=== PATIENT | female | born 1995 | race Caucasian/White ===

== ENCOUNTER → 2018-03-22 01:41 | Observation (INO) ==
[2018-03-22 00:52] VITALS: BP 119/71
[2018-03-22 01:12] LABS: Bilirubin,Urine Negative (Negative); Blood,Urine Negative (Negative); Clarity,Urine Clear (Clear); Color,Urine Yellow (Yellow); Glucose,Urine (UA) Normal (Normal); Ketones,Urine Trace mg/dL (Negative); Leukocyte Esterase,Urine Small (Negative); Nitrite,Urine Negative (Negative); PH,Urine 6.5 pH Units (5.0-8.0); Protein,Urine Negative (Neg-Trace); Specific Gravity,Urine 1.019 (1.010-1.025); Urobilinogen,Urine Normal (Normal)
[2018-03-22 01:14] LABS: Bacteria,Urine Few per hpf (None-Few); Hyaline Casts,Urine None Seen per lpf (None-Few); Squamous Epithelial Cell,Urine Many per lpf (None-Few)
[2018-03-22 01:24] LABS: Amphetamine Screen,Urine Negative ng/mL (Cutoff=1000); Barbiturate Screen,Urine Negative ng/mL (Cutoff=200); Benzodiazepines Screen,Urine Negative ng/mL (Cutoff=200); Cannabinoid Screen,Urine Negative ng/mL (Cutoff = 50); Cocaine Screen,Urine Negative ng/mL (Cutoff= 300); Opiate Screen,Urine Negative ng/mL (Cutoff=300); Phencyclidine Screen,Urine Negative ng/mL (Cutoff=25)
[2018-03-22 01:27] LABS: Sperm,Urine Present
--- NOTE | 2018-03-22 04:41 | Discharge Summary ---
Date of Encounter: 03/22/18 Time of Encounter: 01:35 - Discharge Diagnosis (1) 20 weeks gestation of Priority: Primary Status: Acute Comments: admitted for observation (2) Round ligament pain Priority: Secondary Status: Acute Comments: pain interventions discussed with patient - Discharge Medications Home Medications: RX: Vit Calc,Iron,Folic [ Vitamins] 1 tab PO DAILY 07/22/16 [ History] Promethazine [Phenergan] 25 mg PO Q6HR PRN 03/22/18 [History] Allergies/Adverse Reactions: 3 Allergy/AdvReac Type Severity Reaction Status Date / Time No Known Allergies Allergy Verified 03/22/18 00:46 Data Procedures and tests throughout hospitalization: Laboratory Tests 03/22/18 03/22/18 00:52 00:52 Urine Color Yellow Urine Clarity Clear Urine pH 6.5 Ur Specific [place] 1.019 Urine Protein Negative Urine Glucose (UA) Normal Urine Ketones Trace H Urine Blood Negative Urine Nitrite Negative Urine Bilirubin Negative Urine Urobilinogen Normal Ur Leukocyte Esterase Small H Urine Microscopic RBC 3-5 H Urine Microscopic WBC 5-15 H Ur Squamous Epith Cells Many H Urine Bacteria Few Hyaline Casts None Seen Urine Sperm Present Ur Culture Indicated? NO. A Urine Opiates Screen Negative Ur Barbiturates Screen Negative Ur Phencyclidine Scrn Negative Ur Amphetamines Screen Negative U Benzodiazepines Scrn Negative Urine Cocaine Screen Negative U Marijuana (THC) Screen Negative Labs on day of discharge: Labs from last 24 hours 03/22/18 03/22/18 00:52 00:52 Urine Color Yellow Urine Clarity Clear Urine pH 6.5 Ur Specific [place] 1.019 Urine Protein Negative Urine Glucose (UA) Normal Urine Ketones Trace H Urine Blood Negative Urine Nitrite Negative Urine Bilirubin Negative Urine Urobilinogen Normal Ur Leukocyte Esterase Small H Urine Microscopic RBC 3-5 H Urine Microscopic WBC 5-15 H Ur Squamous Epith Cells Many H Urine Bacteria Few Hyaline Casts None Seen Urine Sperm Present Ur Culture Indicated? NO. A Urine Opiates Screen Negative Ur Barbiturates Screen Negative Ur Phencyclidine Scrn Negative Ur Amphetamines Screen Negative U Benzodiazepines Scrn Negative Urine Cocaine Screen Negative U Marijuana (THC) Screen Negative Date of admission: 03/22/18 00:31 Discharging clinician: Ludy huertas) Anticipated date of discharge: 03/22/18 - Patient Status Disposition: Home, Self-Care Condition: Good Functional capacity at discharge: independent ambulation - Discharge Instructions Follow Up With: Augustine Zavaleta MD [Partnered Physician] - Additional Instructions: LABOR AND DELIVERY DISCHARGE INSTRUCTIONS Signs and Symptoms to be Reported to your Doctor Immediately: * Sudden gush, continuous or intermittent lead of fluid from vagina (note the time of gush and color of fluid) * Onset of bright red vaginal bleeding with or without pain (if you had a vaginal exam during this visit you may notice some dark red spotting. This is normal.) * Lower abdominal cramping or backache that is premenstrual-like feeling. * More than 6 contractions in one hour. * Burning during urination, having to urinate more frequently or pain in your mid-back. * A change in the baby's activity. This could be an increase or decrease in activity. * Severe headache which does not go away with tylenol. * Sudden swelling in the face, hands, arms and/or legs. * Upper abdominal pain - sometimes associated with heartburn or nausea and is not relieved by Maalox, Mylanta or Tums. * Dizziness or blurred vision or visual disturbances (seeing stars/lights). * Kick Counts One hour after a meal, lay down on one side in a quiet place. Count the number of faheem the baby moves during an hour. If less than 6 movements, notify your physician. Diet: *Force fluids - 8-10 tall glasses of fluid per day. May include popsicles and jello. *Limit caffeine - this includes chocolate, coffee, tea, any soft drink containing such as all geovany, [place] Yellow and Mountain Dew follow up all schedule appointments - Diet and Activity Activity: increase activity as tolerated Diet: regular diet Hospital Course DIAGNOSTIC TECH Hospital course: Patient is a 22 y/o presented to labor and delivery with complaints of lower abdominal pains that come and go. Patient denies LOF, VB or contractions. Patient reports +FM. Patient has not tried any interventions for abdominal pain. The importance of po hydration was also discussed with patient. Patient scheduled for follow up with Dr. Zavaleta this week. Time Attestation: Total time spent providing and/or coordinating discharge services: Time Spent: Less than 30 minutes Exam - Constitutional Vitals: Pulse Resp BP 93 16 119/71 03/22/18 00:45 03/22/18 00:45 03/22/18 00:45 - Other Additional findings: Patient seen and assessed by RN. FHR 150 bpm per doppler. - VTE Reasons for not Prescribing Prophylaxis: Treatment not Indicated - Low risk for VTE
== END | disposition home or self-care (01) ==
LOC: 1NENULAB
PROVIDERS: ADMIT Advanced Practice Midwife; ATTEND Advanced Practice Midwife

== ENCOUNTER → 2018-04-21 23:35 | Observation (INO) ==
[2018-04-21 22:55] LABS: Bilirubin,Urine Negative (Negative); Blood,Urine Negative (Negative); Clarity,Urine Cloudy (Clear); Color,Urine Yellow (Yellow); Glucose,Urine (UA) Normal (Normal); Ketones,Urine Trace mg/dL (Negative); Leukocyte Esterase,Urine Small (Negative); Nitrite,Urine Negative (Negative); Protein,Urine 30 mg/dL (Neg-Trace); Specific Gravity,Urine > 1.030 (1.010-1.025); Urobilinogen,Urine Normal (Normal)
[2018-04-21 22:56] LABS: Bacteria,Urine Many per hpf (None-Few); Hyaline Casts,Urine Moderate per lpf (None-Few); Squamous Epithelial Cell,Urine Many per lpf (None-Few); WBC,Urine 50-100 per hpf (0-3)
[2018-04-21 23:16] LABS: Amphetamine Screen,Urine Negative ng/mL (Cutoff=1000); Barbiturate Screen,Urine Negative ng/mL (Cutoff=200); Benzodiazepines Screen,Urine Negative ng/mL (Cutoff=200); Cannabinoid Screen,Urine Negative ng/mL (Cutoff = 50); Cocaine Screen,Urine Negative ng/mL (Cutoff= 300); Opiate Screen,Urine Negative ng/mL (Cutoff=300); Phencyclidine Screen,Urine Negative ng/mL (Cutoff=25)
--- NOTE | 2018-04-21 23:33 | OB/GYN Progress Note ---
Date of Encounter: 04/21/18 Time of Encounter: 23:31 - Assessment and Plan (1) 24 weeks gestation of Current Visit: Yes Status: Acute (2) Abdominal cramping affecting Current Visit: Yes Status: Acute UA indicates dehydration. Pt states feels better after drinking 1L jug of water , no more abdominal pain. Good movement. Discharged home with labor and when to return to triage precautions. Pt verbalizes understanding. Subjective - Subjective Interval history: 24+3 weeks [facility] of sharp pains to upper and lower abdomen. Reports good movement, denies contractions, vaginal bleeding or leaking of fluid. Pt was outside for most of the day today and only drank 1 bottle of water and a bottle of gatorade all day. Antepartum ROS: movement normal, no loss of fluid, no vaginal bleeding, no contractions Objective - Vital Signs Vital Signs: Intake and Output 04/21/18 04/21/18 04/21/18 07:59 15:59 23:59 Other: Weight 92.079 kg Patient Weight 04/21/18 23:59 Weight 92.079 kg - Exam FHR: auscultation normal FHR comments: Baseline 145 Abdomen: Present: soft, gravid Comments: No CVA tenderness. - Labs Labs: Abnormal lab results Urine Clarity Cloudy (Clear) A 04/21/18 22:45 Ur Specific [place] > 1.030 (1.010-1.025) H 04/21/18 22:45 Urine Protein 30 mg/dL (Neg-Trace) H 04/21/18 22:45 Urine Ketones Trace mg/dL (Negative) H 04/21/18 22:45 Ur Leukocyte Esterase Small (Negative) H 04/21/18 22:45 Urine Microscopic RBC 5-15 per hpf (0-3) H 04/21/18 22:45 Urine Microscopic WBC 50-100 per hpf (0-3) H 04/21/18 22:45 Ur Squamous Epith Cells Many per lpf (None-Few) H 04/21/18 22:45 Urine Bacteria Many per hpf (None-Few) H 04/21/18 22:45 Hyaline Casts Moderate per lpf (None-Few) H 04/21/18 22:45 Ur Culture Indicated? NO. (NO) A 04/21/18 22:45
== END | disposition home or self-care (01) ==
LOC: 1NENULAB
PROVIDERS: ADMIT Advanced Practice Midwife; ATTEND Advanced Practice Midwife

== ENCOUNTER 2018-06-03 00:52 | Observation (INO) ==
[2018-06-03 01:32] LABS: Bilirubin,Urine Negative (Negative); Blood,Urine Negative (Negative); Clarity,Urine Cloudy (Clear); Color,Urine Yellow (Yellow); Glucose,Urine (UA) Normal (Normal); Ketones,Urine Negative (Negative); Leukocyte Esterase,Urine Negative (Negative); Nitrite,Urine Negative (Negative); Protein,Urine Negative (Neg-Trace); Specific Gravity,Urine 1.009 (1.010-1.025); Urobilinogen,Urine Normal (Normal)
[2018-06-03 01:35] LABS: Bacteria,Urine Few per hpf (None-Few); Hyaline Casts,Urine None Seen per lpf (None-Few); RBC,Urine 0-3 per hpf (0-3); Squamous Epithelial Cell,Urine Many per lpf (None-Few)
[2018-06-03 01:38] LABS: Amphetamine Screen,Urine Negative ng/mL (Cutoff=1000); Barbiturate Screen,Urine Negative ng/mL (Cutoff=200); Benzodiazepines Screen,Urine Negative ng/mL (Cutoff=200); Cannabinoid Screen,Urine Negative ng/mL (Cutoff = 50); Cocaine Screen,Urine Negative ng/mL (Cutoff= 300); Opiate Screen,Urine Negative ng/mL (Cutoff=300); Phencyclidine Screen,Urine Negative ng/mL (Cutoff=25)
--- NOTE | 2018-06-03 03:03 | OB/GYN Progress Note ---
Date of Encounter: 06/03/18 Time of Encounter: 03:01 - Assessment and Plan (1) Vaginal discharge during in third trimester Current Visit: Yes Status: Acute SSE with scant amount thin, white discharge in vault. No pooling, negative nitrazine, negative fern. Discharge appears physiologic. Discharge home with precautions. (2) 30 weeks gestation of Current Visit: Yes Status: Acute Subjective - Subjective Interval history: 22 year-old presenting at 30w4d with c/o leaking fluid x2 gushes. She reports first gush night before last around 10-11pm with a second gush last evening around the same time. She denies leaking or discharge in between. No urinary sx or other complaints. Good FM. Antepartum ROS: loss of fluid, movement normal, no vaginal bleeding, no contractions Objective - Vital Signs Vital Signs: Intake and Output 06/02/18 06/02/18 06/03/18 15:59 23:59 07:59 Other: Weight 94.256 kg Patient Weight 06/03/18 23:59 Weight 94.256 kg - Exam FHR: category 1 FHR comments: NST reassuring for GA, 140 BPM Auscultation: bilateral: normal Abdomen: Present: soft, gravid Uterus: Absent: tenderness Cervical dilation: visually closed, no SVE due to rare contractions on toco - Labs Labs: Abnormal lab results Urine Clarity Cloudy (Clear) A 06/03/18 01:16 Ur Specific [place] 1.009 (1.010-1.025) L 06/03/18 01:16 Urine Microscopic WBC 3-5 per hpf (0-3) H 06/03/18 01:16 Ur Squamous Epith Cells Many per lpf (None-Few) H 06/03/18 01:16
== END 2018-06-03 03:12 | disposition home or self-care (01) ==
LOC: 1NENULAB
PROVIDERS: ADMIT Registered Nurse; ATTEND Registered Nurse

== ENCOUNTER 2018-08-03 09:17 | Inpatient (IN) ==
[2018-08-03] MEDS ORDERED: Famotidine 20 MG/2 ML VIAL IVP PRN (09:28)
[2018-08-03] MEDS ORDERED: CeFAZolin Premix DUPLEX 2,000 MG/50 ML BAG IVPB ONE (09:28)
[2018-08-03] MEDS ORDERED: Naloxone 0.4 MG/ML INJ IVP PRN (09:28)
[2018-08-03] MEDS ORDERED: Ondansetron 4 MG/2 ML VIAL IVP PRN ×3 (09:28→14:48)
[2018-08-03] MEDS ORDERED: Metoclopramide 10 MG/2 ML VIAL IVP PRN ×2 (09:28→14:48)
[2018-08-03] MEDS ORDERED: Ringers Solution, Lactated 1,000 ML IVC ONE (09:28)
[2018-08-03] MEDS ORDERED: Ringers Solution, Lactated 1,000 ML IVC SCH ×2 (09:30→15:00)
--- NOTE | 2018-08-03 12:15 | OB/GYN History & Physical ---
Date of Encounter: 08/03/18 Time of Encounter: 12:14 Assessment and Plan (1) 39 weeks gestation of Current visit: Yes Status: Acute Presents for repeat . Ptaware of operative risks and signed appropriate consent. History of Present Illness Chief complaint: Here for repeat HPI: Ms. Yang is a 23 year old female 2 para 1 female 39 weeks gestation presents for repeat section. She is aware operative risks and signed appropriate consent. Strings abdomen concave. On Ahmadi reports good movement and denies bleeding or leakage of fluid. Past Med Surg Social Fam HX - Past Medical History Source: patient, old records reviewed Medical history: no medical history Additional medical history: gastritis. post- anemia Psychiatric history: no psych history - Past Surgical History Surgical History: Additional surgical history: x1 - Social History Smoking Status: Never smoker Smokeless Tobacco Status: No Alcohol use: none Drug use: none - Family History Mother Adopted: Yes (biological mother's info) Name: Tamar Living Status: Still Living Hx Family Cardiac Disorders: No Hx Family Respiratory Disorders: No Hx Family Cancer: No Hx Family GI Disorders: No Hx Family Endocrine Disorder: No Hx Family Neuromuscular Disorders: No Hx Family Neurologic Disorders: No Hx Family HEENT Disorders: No Hx Family Autoimmune Disorders: No Hx Family Medical Disorders: No Obstetrical History - Pregnancies : 2 Medications and Allergies Vit Calc,Iron,Folic [ Vitamins] 1 tab PO DAILY 07/22/16 [ History] 3 Allergy/AdvReac Type Severity Reaction Status Date / Time No Known Allergies Allergy Verified 06/03/18 01:11 Exam - Constitutional Constitutional: well developed, well nourished, no acute distress - HEENT HEENT: EOMI, PERRL - Neck Neck exam: full ROM - Lungs Respiratory exam: CTAB - Cardiovascular Cardiovascular exam: RRR - Abdomen Abdomen: Present: gravid - Extremities Extremities exam: full ROM Deep Tendon Reflex Grade: 2+ Normal Results All other labs normal. - VTE Reasons for not Prescribing Prophylaxis: Treatment not Indicated - Low risk for VTE
[2018-08-03 12:23] LABS: Basophils % 0.2 %; Eosinophils # 0.1 K/mcL (0.0-0.6); Eosinophils % 0.7 %; Hematocrit 32.8 % (35.3-44.9); Hemoglobin 10.7 g/dL (11.5-15.4); Immature Granulocytes % 0.2 % (0-4); Lymphocytes # 2.4 K/mcL (0.6-4.6); Lymphocytes % 28.1 %; Mean Corpuscular HGB Conc 32.6 g/dL (31.6-35.5); Mean Corpuscular Hemoglobin 28.4 pg (28.0-33.3); Mean Platelet Volume 10.4 fL (9.4-12.4); Monocytes # 0.6 K/mcL (0.0-1.3); Monocytes % 7.1 %; Neutrophils # 5.4 K/mcL (1.6-8.9); Platelet Count 253 K/mcL (140-400); Red Blood Count 3.77 M/mcL (3.82-4.97); Red Cell Distribution Width 12.5 % (11.5-14.5); Segmented Neutrophils % 63.7 %
--- NOTE | 2018-08-03 13:20 | Anesthesia Evaluation PreOp ---
Date of Encounter: 08/03/18 Time of Encounter: 13:15 - Past History Planned Operation: RCS Cardiac History: Denies any Significant Hx Pulmonary History: Denies Any Significant HX AUTOMOTIVE SALESPERSON History: Denies Any Significant HX Other Medical History: Denies Any Significant HX Anesthesia History: No Prior Anesthetic Complications : Yes Test: Positive Alcohol Use: none Drug use: none Medications and Allergies Vit Calc,Iron,Folic [ Vitamins] 1 tab PO DAILY 07/22/16 [ History] 3 Allergy/AdvReac Type Severity Reaction Status Date / Time No Known Allergies Allergy Verified 06/03/18 01:11 - Meds/Allergy Pre-op Review Medications Reviewed: Yes Allergies Reviewed: Yes Beta Blockers on Current Med List: No Anesthesia Results - Labs 08/03/18 09:55 Anesthesia Exam - HEENT Pupil (Motor): Pupils equal Mallampati: II Teeth: Normal Oral Opening: Greater than 3 - AUTOMOTIVE SALESPERSON LOC: Oriented AUTOMOTIVE SALESPERSON Motor: Normal RUE, Normal LUE, Normal RLE, Normal LLE, Normal Face AUTOMOTIVE SALESPERSON Sensory: Normal: RUE, LUE, RLE, LLE, Face - Cardiac Rhythm: Regular Murmur: None JVD: No Carotid Bruit: No - Pulmonary Breath Sounds: bilateral Clear Respiratory Effort: Symmetrical Anesthesia Assess/Plan ASA Score: 2 Modified Isra Scale for Level of Consciousness: Cooperative, oriented, and tranquil Anesthetic Plan: Regional Autologous Blood: No Monitoring Plan: Standard Monitors Recovery Plan: PACU
[2018-08-03] MEDS ORDERED: *HR* FentaNYL (PF) 100 MCG/2 ML VIAL ONE (13:43)
[2018-08-03] MEDS ORDERED: *HR* Morphine Sulfate/PF 10 MG/10 ML AMPUL ONE (13:43)
[2018-08-03] MEDS ORDERED: Ondansetron 4 MG/2 ML VIAL ONE (14:12)
[2018-08-03] MEDS ORDERED: Ketorolac 30 MG/ML VIAL ONE (14:12)
[2018-08-03] MEDS ORDERED: Dexamethasone 4 MG/ML VIAL ONE (14:12)
[2018-08-03] MEDS ORDERED: *HR* Oxytocin 10 UNIT/ML VIAL IM ONE (14:12)
[2018-08-03] MEDS ORDERED: EPHEDrine 50 MG/ML VIAL ONE (14:12)
[2018-08-03] MEDS ORDERED: Lidocaine 1% 20 ML MDV ONE (14:12)
--- NOTE | 2018-08-03 14:25 | Anesthesia Procedures ---
Date of Encounter: 08/03/18 Time of Encounter: 13:45 Procedures: Anesthesia - Epidural/Spinal Patient ID/Chart reviewed: Yes Patient examined: Yes OB Eval: Gestational age: 39 OB Eval: : 2 OB Eval: Hx Para: 1 OB Eval: Contractions: Non-stressed pattern Consent Obtained: Yes Site Prep: Aseptic Technique, Sterile prep and drape, Povidone-Iodine 1% Patient position: upright Local Anesthetic: Lidocaine 1% Amount of Local Anesthetic used: 3 Interspace Used: L4-L5 Loss of Resistance (NING): No Blood: No CSF: Yes Paresthesia: Yes Vitals + FHT's: stable throughout see nursing notes uneventful spinal with ease tolerated well bupivicaine 0.5% 2 ml fentanyl 10mcg duramorph 0.3mg
[2018-08-03] MEDS ORDERED: Acetaminophen IV 1,000 MG/100 ML INFUS..BTL IVPB ONE (14:29)
[2018-08-03] MEDS ORDERED: *HR* Meperidine 25 MG/ML SYRINGE IVP PRN (14:29)
[2018-08-03] MEDS ORDERED: Ondansetron 4 MG/2 ML VIAL IVP ONE (14:29)
[2018-08-03] MEDS ORDERED: *HR* Promethazine 25 MG/ML VIAL IVP PRN (14:29)
[2018-08-03] MEDS ORDERED: Ibuprofen 400 MG TABLET PO PRN (14:29)
[2018-08-03] MEDS ORDERED: Simethicone 80 MG TAB.CHEW PO PRN (14:48)
[2018-08-03] MEDS ORDERED: Rho Immune Globulin 1,500 UNIT SYRINGE IM ONE (14:48)
[2018-08-03] MEDS ORDERED: Sennosides 8.6 MG TABLET PO PRN (14:48)
[2018-08-03] MEDS ORDERED: Oxytocin 20 units/ LR 1000 mL 20 UNIT/1,000 ML BAG IVC SCH (15:00)
[2018-08-03] MEDS: *HR* OxyCODONE/APAP 5/325 TABLET PO PRN (17:32)
[2018-08-04 05:04] LABS: Basophils % 0.1 %; Immature Granulocytes % 0.4 % (0-4); Lymphocytes # 1.9 K/mcL (0.6-4.6); Lymphocytes % 15.3 %; Mean Corpuscular HGB Conc 32.4 g/dL (31.6-35.5); Mean Corpuscular Hemoglobin 28.3 pg (28.0-33.3); Mean Corpuscular Volume 87.4 fL (83.0-100.0); Mean Platelet Volume 10.1 fL (9.4-12.4); Monocytes # 1.1 K/mcL (0.0-1.3); Monocytes % 8.9 %; Neutrophils # 9.3 K/mcL (1.6-8.9); Platelet Count 219 K/mcL (140-400); Red Blood Count 2.86 M/mcL (3.82-4.97); Red Cell Distribution Width 12.3 % (11.5-14.5); Segmented Neutrophils % 75.3 %
[2018-08-04 05:05] LABS: Hemoglobin 8.1 g/dL (11.5-15.4)
--- NOTE | 2018-08-04 08:44 | OB/GYN Progress Note ---
Date of Encounter: 08/04/18 Time of Encounter: 08:44 - Assessment and Plan (1) S/P section Current Visit: Yes Status: Acute Stable postop day 1 Hemoglobin 8.1, down from 10.7 preop, on iron Repeat H&H in the morning prior to discharge Anticipate discharge home tomorrow Subjective - Subjective Interval history: 23-year-old female postop day 1 status post repeat . Patient doing well today states her pain is very well controlled. Has not ambulated yet or voided on her own as [place] was recently taken out. Patient is eating and drinking well. Passing flatus but no bowel movement yet. States her mood is good. Breast-feeding infant without complication thus far. Vaginal bleeding improving. Patient reports: appetite normal, voiding normally, pain well controlled, ambulating normally : doing well Objective - Vital Signs Latest vital signs: Vital Signs Temp Pulse Resp BP Pulse Ox 08/04/18 08:10 98.0 F 94 14 109/68 96 08/04/18 03:30 97.8 F 88 16 101/62 97 08/03/18 23:20 97.8 F 96 14 100/55 96 08/03/18 19:49 97.6 F 90 17 110/72 96 08/03/18 19:10 97.5 F L 88 16 113/70 96 08/03/18 18:10 97.4 F L 101 16 103/65 97 08/03/18 17:40 97.4 F L 87 16 97/59 99 08/03/18 17:15 97.4 F L 83 16 105/66 97 Intake and Output 08/03/18 08/04/18 08/04/18 23:59 07:59 15:59 Intake Total 1000 / 1000 Output Total 200 / 200 750 / 750 Balance -200 / -200 250 / 250 Intake: IV Fluids 1000 / 1000 Pitocin 20 unit In 1,000 ml @ 1000 / 1000 125 mls/hr IVC .Q8H [facility] Rx#: [id number] Output: Catheter 200 / 200 750 / 750 Other: Stool Characteristics Normal for Patient Weight 88.536 kg Patient Weight 08/04/18 23:59 Weight 88.536 kg - Exam Lungs: bilateral: normal Chest: Normal S1, Normal S2 Extremities: Present: normal Abdomen: Present: normal appearance, soft Incision: Present: normal, dry, dressed Uterus: Present: normal, firm (At umbilicus) - Labs Labs: Laboratory Results - last 24 hr 08/03/18 08/03/18 08/03/18 09:55 09:55 10:06 WBC 8.5 RBC 3.77 L Hgb 10.7 L Hct 32.8 L MCV 87.0 MCH 28.4 MCHC 32.6 RDW 12.5 Plt Count 253 MPV 10.4 Immature Gran % 0.2 Seg Neutrophils % 63.7 Lymphocytes % 28.1 Monocytes % 7.1 Eosinophils % 0.7 Basophils % 0.2 Neutrophils # 5.4 Lymphocytes # 2.4 Monocytes # 0.6 Eosinophils # 0.1 Basophils # 0.0 Hep Bs Antigen Nonreactive Specimen Rejected Labelling 08/04/18 04:43 WBC 12.4 H RBC 2.86 L Hgb 8.1 L D Hct 25.0 L MCV 87.4 MCH 28.3 MCHC 32.4 RDW 12.3 Plt Count 219 MPV 10.1 Immature Gran % 0.4 Seg Neutrophils % 75.3 Lymphocytes % 15.3 Monocytes % 8.9 Eosinophils % 0.0 Basophils % 0.1 Neutrophils # 9.3 H Lymphocytes # 1.9 Monocytes # 1.1 Eosinophils # 0.0 Basophils # 0.0 Hep Bs Antigen Specimen Rejected
[2018-08-04] MEDS ORDERED: Prenatal Vit/FA 1 EACH TABLET PO SCH (09:00)
[2018-08-04] MEDS: Ibuprofen 600 MG TABLET PO PRN ×2 (09:46→20:41)
[2018-08-04] MEDS: *HR* OxyCODONE/APAP 5/325 TABLET PO PRN (16:47)
[2018-08-04 20:18] VITALS: BP 108/64
[2018-08-05] MEDS: *HR* OxyCODONE/APAP 5/325 TABLET PO PRN (12:30)
[2018-08-05] MEDS ORDERED: Ibuprofen 600 MG TABLET PO ONE (12:42)
[2018-08-05] MEDS ORDERED: Prenatal Vit/FA 1 EACH TABLET PO ONE (12:42)
--- NOTE | 2018-08-05 13:30 | OB/GYN Procedure Note ---
Section - Date of procedure: 08/03/18 Preop diagnosis: desires repeat Post-op diagnosis: other (pelvic adhesions) Procedure: section, repeat low transverse Surgeon: Augustine Holbrook Blood Loss: [phone] Was there an ophthalmic assistant present: No Cement Mason Maintenance: Mere Case Anesthesia Type: Spinal section complications: none Disposition: L&D Recovery Room Specimens: Placenta - (s) A Delivery Date: 08/03/18 Delivery Time: 14:13 Presentation: vertex Gender: Female Viability: Viable Gram Weight: 3.285 kg at 1 minute: 8 at 5 minutes: 9 Shoulder Dystocia: not encountered Specimens collected: cord blood Placenta: spontaneous Cord: 3 umbilical vessels - Narrative Narrative: Pt presents today for repeat . has been uncomplicated. Procedure:Pt was taken to OR where spinal anesthesia was administered. She was prepped, draped in usual sterile faashion and bladder was drained with holcomb catheter. Scapel was used to make a pfanansteil skin incision and this was sharply taken down to the rectus fascia. Fascia was incsied and incison was extended bilaterally. Recuts muscles were divided and peritoneum was entered. Uterine fundus was attached to peritoneum and was taken down with bovie. Bladder was adherent to lower uterine segment and was taken down. Bladder flap was develpoed. Scapel was used to make low transvers uterine incisions and this was extended blutntly bialterally. Membranes were ruptured of clear fluid and infant was delivered fromvertex presentation. Placenta was delivered mannually and uterine cavity with lap. Uterus was closed with 0 vicryl in a running locked stitch. Fascia was closed with vicryl. Skin was reapproximated with 4-0 vicryl.
[2018-08-05 16:19] LABS: Hematocrit 24.6 % (35.3-44.9); Hemoglobin 7.8 g/dL (11.5-15.4)
--- NOTE | 2018-08-14 09:13 | Discharge Summary ---
Date of Encounter: 08/05/18 Time of Encounter: 09:11 - Discharge Diagnosis (1) S/P section Priority: Primary Status: Acute Comments: Pain well controlled H&H 7.8, will continue Iron Ambulating, no BM yet Continue Percocet 5mg and ibuprofen 600mg for pain control Continue docusate, stool softener Stable for discharge today - Discharge Medications Home Medications: RX: Vit Calc,Iron,Folic [ Vitamins] 1 tab PO DAILY 07/22/16 [History] Allergies/Adverse Reactions: Allergy/AdvReac Type Severity Reaction Status Date / Time No Known Allergies Allergy Verified 06/03/18 01:11 Data Procedures and tests throughout hospitalization: Laboratory Tests 08/03/18 08/03/18 08/03/18 09:55 09:55 10:06 WBC 8.5 RBC 3.77 L Hgb 10.7 L Hct 32.8 L MCV 87.0 MCH 28.4 MCHC 32.6 RDW 12.5 Plt Count 253 MPV 10.4 Immature Gran % 0.2 Seg Neutrophils % 63.7 Lymphocytes % 28.1 Monocytes % 7.1 Eosinophils % 0.7 Basophils % 0.2 Neutrophils # 5.4 Lymphocytes # 2.4 Monocytes # 0.6 Eosinophils # 0.1 Basophils # 0.0 Hep Bs Antigen Nonreactive Specimen Rejected Labelling 08/04/18 08/05/18 04:43 11:00 WBC 12.4 H RBC 2.86 L Hgb 8.1 L D 7.8 L Hct 25.0 L 24.6 L MCV 87.4 MCH 28.3 MCHC 32.4 RDW 12.3 Plt Count 219 MPV 10.1 Immature Gran % 0.4 Seg Neutrophils % 75.3 Lymphocytes % 15.3 Monocytes % 8.9 Eosinophils % 0.0 Basophils % 0.1 Neutrophils # 9.3 H Lymphocytes # 1.9 Monocytes # 1.1 Eosinophils # 0.0 Basophils # 0.0 Hep Bs Antigen Specimen Rejected Date of admission: 08/03/18 09:17 Primary care physician: Hemant Michelle Discharging clinician: Argelia Rush Anticipated date of discharge: 08/05/18 - Patient Status Disposition: Home, Self-Care Condition: Good - Discharge Instructions Instructions: Iron Supplements (By mouth), Ibuprofen (By mouth), Oxycodone/Acetaminophen (By mouth), Laxative, Stool Softeners (By mouth) Follow Up With: Hemant Michelle DO [Primary Care Provider] - - Diet and Activity Activity: ambulate only with your walker, increase activity as tolerated Diet: advance to your usual diet Hospital Course Hospital course: Section - Date of procedure: 08/03/18 Preop diagnosis: desires repeat Post-op diagnosis: other (pelvic adhesions) Procedure: section, repeat low transverse Surgeon: Augustine Holbrook Blood Loss: [phone] Was there an computer assistant present: No Credit Card Analyst: Mere Case Anesthesia Type: Spinal section complications: none Disposition: L&D Recovery Room Specimens: Placenta - Infant (s) A Delivery Date: 08/03/18 Delivery Time: 14:13 Presentation: vertex Gender: Female Viability: Viable Gram Weight: 3.285 kg at 1 minute: 8 at 5 minutes: 9 Shoulder Dystocia: not encountered Specimens collected: cord blood Placenta: spontaneous Cord: 3 umbilical vessels - Narrative Narrative: Pt presents today for repeat . has been uncomplicated. Procedure:Pt was taken to OR where spinal anesthesia was administered. She was prepped, draped in usual sterile faashion and bladder was drained with holcomb catheter. Scapel was used to make a pfanansteil skin incision and this was sharply taken down to the rectus fascia. Fascia was incsied and incison was extended bilaterally. Recuts muscles were divided and peritoneum was entered. Uterine fundus was attached to peritoneum and was taken down with bovie. Bladder was adherent to lower uterine segment and was taken down. Bladder flap was develpoed. Scapel was used to make low transvers uterine incisions and this was extended blutntly bialterally. Membranes were ruptured of clear fluid and infant was delivered fromvertex presentation. Placenta was delivered mannually and uterine cavity with lap. Uterus was closed with 0 vicryl in a running locked stitch. Fascia was closed with vicryl. Skin was reapproximated with 4-0 vicryl. Time Attestation: Total time spent providing and/or coordinating discharge services: Time Spent: Less than 30 minutes - VTE Reasons for not Prescribing Prophylaxis: Treatment not Indicated - Low risk for VTE Documentation of Mechanical Device: Intermittent pneumatic compression device - Attending Attestation I examined this patient and my medical decision-making was reviewed with the Resident Physician. I agree with the documented findings, disposition and treatment plan as described except to the extent set forth below. GARDENIA Matthews Exam - Constitutional Vitals: Temp Pulse Resp BP Pulse Ox 98 F 99 14 108/64 99 08/04/18 20:15 08/04/18 20:15 08/04/18 20:15 08/04/18 20:15 08/04/18 20:15 General appearance IM: A&O X 3, no acute distress, answers questions appropriately - Respiratory Respiratory exam: Present: CTAB - Cardiovascular Cardiovascular exam IM: Present: RRR, +S1, +S2. Absent: irregular rhythm - GI/Abdominal GI/Abdominal exam IM: soft Incision: normal, dry, intact, dressed - Uterine Tone: Firm Uterus Position: At Umbilicus, Midline - Extremities Exam Extremities exam IM: Absent: pedal edema - Neurological Exam Neurological exam: alert, oriented X3, no focal deficits
== END 2018-08-05 12:43 | disposition home or self-care (01) | DRG 540 ==
LOC: 1NENULAB 09:17 → 1NENUOBS 17:14
PROVIDERS: ADMIT Obstetrics & Gynecology; ATTEND Obstetrics & Gynecology